=== PATIENT | female | born 1970 | race Caucasian/White ===

== ENCOUNTER 2018-05-30 10:43 | Emergency (ER) | payer OTHER ==
[~2018-05-30] VITALS: Ht 165.1 cm; Wt 95.3 kg
[~2018-05-30 10:43] MED LIST: ACETAMINOPHEN325 M1 PO; ADULT LOW DOSE81 MG PO; ALLEGRA ALLERG180 MG PO; AMOXICILLIN875 MG PO; ANAPROX DS550 MG PO; APHEN325 MG PO; AZITHROMYCIN 2250 MG PO; CALCIUM 600 +1 EAC5 PO; CARISOPRODOL 3350 MG PO; CIPROFLOXACIN500 M1 PO; COLACE 100 MG100 MG PO; CRESTOR10 MG PO; EFFIENT10 MG PO; HYDROCHLOROTH12.5 MG PO; IBUPROFEN 800800 MG PO; IRON325 PO; LASIX 40 MG TAB40 M1 PO; LEVOTHROID88 MCG; LISINOPRIL2.5 MG PO; LOPRESSOR 12.12.5 MG PO; MEDROLDOSEPACK PO; MULTIVITAMINS PO; NAPROSYN500 MG PO; NEURONTIN 300M300 M2 PO; NITROGLYCERIN0.4 MG SL; ODORLESS GARLI500 MG; PERCOCET 5-3251 EACH PO; PREDNISONE 20 M20 M1 PO; PRILOSEC40 MG PO; PROAIR HFA8.5 GM IH; PROMETHAZINE-D120 ML PO; PROTONIX40 M2 PO; ROBAXIN500 MG PO; SYNTHROID75 MCG PO; TAMSULOSIN HCL0.4 M1 PER TUBE; TESSALON200 MG PO; TRAMADOL 50 MG50 MG PO; TRIBENZOR 40-51 EACH PO; ULTRAM 50MG TAB50 MG PO; VITAMIN C 250250 MG; VITAMIN D1000 UNI1 PO; ZPAK PO; [UNRECOGNIZED DRUG - OTHER] PO
[2018-05-30] MEDS ORDERED: ASPIR 8181 MG PO (11:03)
[2018-05-30] MEDS ORDERED: MOBIC15 MG PO (12:24)
[2018-05-30] MEDS ORDERED: MEDROLDOSEPACK PO (12:24)
[2018-05-30 12:39] VITALS: BP 128/98
== END 2018-05-30 12:40 | disposition home or self-care (01) ==
LOC: M.ERS 10:43
DX: M13.862 Other specified arthritis, left knee (principal); R22.42 Localized swelling, mass and lump, left lower limb; I10 Essential (primary) hypertension; Z88.6 Allergy status to analgesic agent; Z88.5 Allergy status to narcotic agent; Z88.2 Allergy status to sulfonamides; E03.9 Hypothyroidism, unspecified; Z90.49 Acquired absence of other specified parts of digestive tract; Z86.73 Personal history of transient ischemic attack (TIA), and cerebral infarction without residual deficits; Z98.890 Other specified postprocedural states; Z86.2 Personal history of diseases of the blood and blood-forming organs and certain disorders involving the immune mechanism

== ENCOUNTER 2018-06-02 15:51 | Emergency (ER) | payer OTHER ==
[~2018-06-02] VITALS: Ht 165.1 cm; Wt 95.3 kg
[~2018-06-02 15:51] MED LIST changes: +ASPIR 8181 MG PO; +MOBIC15 MG PO
[2018-06-02 16:57] LABS: ABSOLUTE BASOPHILS 0.1 thou/uL (0.0-0.2); ABSOLUTE LYMPHOCYTES 2.3 thou/uL (0.8-5.3); ABSOLUTE MONOCYTES 0.6 thou/uL (0.0-1.2); ABSOLUTE NEUTROPHILS 7.7 thou/uL (1.6-8.1); EOSINOPHILS 0.1 %; HEMATOCRIT 40.6 % (37.0-47.0); HEMOGLOBIN 13.6 gm/dL (12.0-15.0); LYMPHOCYTES 21.6 %; MCH 29.6 pg (26.0-34.0); MCHC 33.6 g/dL (28.0-37.0); MCV 88.1 fL (80.0-100.0); MONOCYTES 5.6 %; MPV 8.1 fl. (7.2-11.1); NUCLEATED RBCS 0 /100WBC; PLATELET COUNT* 240 thou/uL (150-400); POLYS 71.7 %; RBC 4.61 mil/uL (4.20-5.00); RDW-CV 13.8 % (10.5-14.5); WBC 10.7 thou/uL (4.0-11.0)
[2018-06-02 17:06] LABS: ANION GAP 7 mmol/L (7-16); BUN 14 mg/dL (7-18); CALCIUM 8.5 mg/dL (8.5-10.1); CHLORIDE 103 mmol/L (98-107); CO2 28 mmol/L (21-32); CREATININE 1.2 mg/dL (0.6-1.3); GLUCOSE 114 mg/dL (70-99); POTASSIUM 3.4 mmol/L (3.5-5.1); SODIUM 138 mmol/L (136-145)
[2018-06-02 17:17] LABS: ALBUMIN 3.7 g/dL (3.4-5.0); ALKALINE PHOSPHATASE 93 U/L (46-116); NT-PRO BRAIN NAT PEPTIDE 316 pg/mL (<300); SGOT 13 U/L (15-37); SGPT 35 U/L (30-65); TOTAL BILIRUBIN 0.2 mg/dL (<0.1-1.0); TOTAL PROTEIN 7.5 g/dL (6.4-8.2); TROPONIN-I LEVEL <0.06 ng/mL (<0.06)
[2018-06-02] MEDS ORDERED: ZOCOR20 MG PO (18:05)
[2018-06-02] MEDS ORDERED: HYDROCHLOROTHIA25 M2 PO (18:05)
[2018-06-02] MEDS ORDERED: ARMOUR THYROID90 M1 PO (18:05)
[2018-06-02] MEDS ORDERED: PRINIVIL20 MG PO (18:05)
[2018-06-02] MEDS ORDERED: CYCLOBENZAPRINE5 MG PO (18:05)
[2018-06-02 18:19] VITALS: BP 180/98
--- NOTE | 2018-06-03 15:32 | EKG ---
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
== END 2018-06-02 18:20 | disposition home or self-care (01) ==
LOC: M.ERS 15:51
PROVIDERS: Physician Assistant
DX: M62.830 Muscle spasm of back (principal); I10 Essential (primary) hypertension; E87.6 Hypokalemia; E03.9 Hypothyroidism, unspecified; I25.2 Old myocardial infarction; Z90.49 Acquired absence of other specified parts of digestive tract; Z88.2 Allergy status to sulfonamides; Z88.5 Allergy status to narcotic agent; Z88.8 Allergy status to other drugs, medicaments and biological substances

== ENCOUNTER 2018-10-14 04:51 | Emergency (ER) | payer OTHER ==
[~2018-10-14] VITALS: Ht 165.1 cm; Wt 95.3 kg
[~2018-10-14 04:51] MED LIST changes: +ARMOUR THYROID90 M1 PO; +CYCLOBENZAPRINE5 MG PO; +HYDROCHLOROTHIA25 M2 PO; +PRINIVIL20 MG PO; +ZOCOR20 MG PO
[2018-10-14] MEDS ORDERED: ARMOUR THYROID120 M1 (05:02)
[2018-10-14] MEDS ORDERED: MAGIC MOUTHWASH SWISH&SPIT (05:29)
[2018-10-14] MEDS ORDERED: IBUPROFEN 800800 MG PO (05:29)
[2018-10-14] MEDS ORDERED: AMOXICILLIN875 MG PO (05:29)
[2018-10-14 05:38] VITALS: BP 114/69
== END 2018-10-14 05:34 | disposition home or self-care (01) ==
LOC: M.ERS 04:51
DX: J02.0 Streptococcal pharyngitis (principal); E03.9 Hypothyroidism, unspecified; I10 Essential (primary) hypertension; Z86.73 Personal history of transient ischemic attack (TIA), and cerebral infarction without residual deficits; Z90.49 Acquired absence of other specified parts of digestive tract; Z98.890 Other specified postprocedural states; Z86.2 Personal history of diseases of the blood and blood-forming organs and certain disorders involving the immune mechanism; Z88.6 Allergy status to analgesic agent; Z88.2 Allergy status to sulfonamides; Z88.5 Allergy status to narcotic agent

== ENCOUNTER 2018-10-27 16:06 | Observation (INO) | payer OTHER ==
[~2018-10-27] VITALS: Ht 157.5 cm; Wt 101.2 kg
[~2018-10-27 16:06] MED LIST changes: +ARMOUR THYROID120 M1 PO; +MAGIC MOUTHWASH SWISH&SPIT
[2018-10-27 16:11] VITALS: BP 133/77
[2018-10-27 16:41] LABS: ABSOLUTE EOSINOPHILS 0.1 thou/uL (0.0-0.7); ABSOLUTE LYMPHOCYTES 2.8 thou/uL (0.8-5.3); ABSOLUTE MONOCYTES 0.3 thou/uL (0.0-1.2); ABSOLUTE NEUTROPHILS 3.2 thou/uL (1.6-8.1); BASOPHILS 0.4 %; EOSINOPHILS 1.2 %; HEMATOCRIT 38.2 % (37.0-47.0); HEMOGLOBIN 12.9 gm/dL (12.0-15.0); MCH 29.4 pg (26.0-34.0); MCHC 33.9 g/dL (28.0-37.0); MONOCYTES 5.3 %; MPV 8.4 fl. (7.2-11.1); NUCLEATED RBCS 0 /100WBC; PLATELET COUNT* 235 thou/uL (150-400); POLYS 49.1 %; RDW-CV 14.1 % (10.5-14.5); WBC 6.5 thou/uL (4.0-11.0)
[2018-10-27 16:54] LABS: ANION GAP 12 mmol/L (7-16); BUN 20 mg/dL (7-18); CALCIUM 9.3 mg/dL (8.5-10.1); CHLORIDE 101 mmol/L (98-107); CO2 28 mmol/L (21-32); CREATININE 1.1 mg/dL (0.6-1.3); GLUCOSE 130 mg/dL (70-99); POTASSIUM 3.5 mmol/L (3.5-5.1); SODIUM 141 mmol/L (136-145)
[2018-10-27 16:58] LABS: APTT 25.9 Seconds (25.0-31.3); INR 0.9; PROTIME 9.6 Seconds (9.20-11.50)
[2018-10-27 17:06] LABS: ALKALINE PHOSPHATASE 90 U/L (46-116); LIPASE 161 U/L (73-393); NT-PRO BRAIN NAT PEPTIDE 132 pg/mL (<300); SGOT 22 U/L (15-37); SGPT 47 U/L (30-65); TOTAL BILIRUBIN 0.2 mg/dL (<0.1-1.0); TOTAL PROTEIN 7.5 g/dL (6.4-8.2); TROPONIN-I LEVEL <0.06 ng/mL (<0.06)
[2018-10-27 22:10] VITALS: BP 114/59
[2018-10-27] MEDS ORDERED: HYDROCHLOROTHIA50 MG PO (22:50)
[2018-10-27 23:00] VITALS: BP 124/66
[2018-10-28 04:00] VITALS: BP 91/41
[2018-10-28 04:25] LABS: HEMATOCRIT 35.1 % (37.0-47.0); HEMOGLOBIN 11.6 gm/dL (12.0-15.0); MCH 29.3 pg (26.0-34.0); MCHC 33.1 g/dL (28.0-37.0); MCV 88.5 fL (80.0-100.0); MPV 8.4 fl. (7.2-11.1); RBC 3.96 mil/uL (4.20-5.00); RDW-CV 13.9 % (10.5-14.5); WBC 5.5 thou/uL (4.0-11.0)
[2018-10-28 04:39] LABS: ANION GAP 6 mmol/L (7-16); BUN 18 mg/dL (7-18); CALCIUM 8.9 mg/dL (8.5-10.1); CHLORIDE 107 mmol/L (98-107); CHOLESTEROL 132 mg/dL (<200); CO2 30 mmol/L (21-32); CREATININE 1.1 mg/dL (0.6-1.3); GLUCOSE 99 mg/dL (70-99); HDL CHOLESTEROL 33 mg/dL (>40); LDL CHOLESTEROL 71 mg/dL (<100); MAGNESIUM 1.9 mg/dL (1.8-2.4); POTASSIUM 3.6 mmol/L (3.5-5.1); SODIUM 143 mmol/L (136-145); TRIGLYCERIDE 144 mg/dL (<150); VLDL 29 mg/dL (<40)
[2018-10-28 04:41] LABS: SERUM ASSESSMENT CLEAR
--- NOTE | 2018-10-28 05:14 | NUR ---
RECEIVED REPORT FROM ED RN. PT TRANSFERRED TO 218. PT A&OX4. VSS. LANDMAN IN PLACE. ADMISSION HISTORY & PHYSICAL ASSESSMENT COMPLETED AND CHARTED. PT ON RA. PT TRACING SR ON TELE. PT COMPLAINED OF INTERMITTENT CHEST PAIN. EKG SHOWS SR. INSTRUCTED ON NPO POST MIDNIGHT FOR CARDIO CONSULT. COMMUNICATES UNDERSTANDING. ORIENTED TO ROOM AND CALL LIGHT. PT RESTED WELL ON BED. CALL LIGHT WITHIN REACH.
[2018-10-28 08:00] VITALS: BP 109/72
[2018-10-28] MEDS ORDERED: NITROGLYCERIN0.4 MG SUBLING (08:59)
--- NOTE | 2018-10-28 10:20 | NUR ---
Pt is A&O. Resides at home with her parents and kids. Active and independent. No DME. No hx of HH or SNF. Goal is home at dc. Cardiology following. No needs anticipated.
[2018-10-28 11:30] VITALS: BP 108/72
--- NOTE | 2018-10-28 14:08 | EXE ---
[place] [address] STRESS ECHOCARDIOGRAM Name: DANELLE VIVAS Room: [address]#: [id number] Admission: 10/27/18 Attend Phys: Surendra Spring, Discharge: Date of : 70 Date of Service: 10/28/18 1407 Report #: [id number] THIS REPORT FOR: //name// APPROVED REPORT Study performed: 10/28/2018 12:40:48 Exam: Stress Echocardiogram Indication: Chest pain , Dyspnea , Dizziness Patient Location: In-Patient Stress Nurse: Margarita Eaton RN Room #: [facility] Supervising Physician: Hernan Emmanuel MD Ht: 5 ft 5 in HR: 69 bpm BP: 122/57 mmHg Medical History Medical History: [place], PCI Cardiac Risk Factors: HTN, Hyperlipidemia, FHX of CAD Procedure The patient underwent an Exercise Stress Test using the Ciro Protocol. Blood pressure, heart rate, and EKG were monitored. An Echocardiogram was performed by geochemical laboratory technician in four stages in quad fashion. At peak stress, four selected images were obtained and placed side by side with resting images for comparison. Stress Test Details Stress Test: Exercise stress testing was performed using a Ciro protocol. HR Resting HR: 69 bpm Max Heart Rate (APMHR): 172 bpm Max HR Achieved: 159 bpm Target HR (85% APMHR): 146 bpm % of APMHR: 92 Recovery HR: 89 bpm HR response to stress: Normal HR response to stress BP Resting BP: 122/57 mmHg Max BP: 167/64 mmHg Recovery BP: 127/66 mmHg BP response to stress: Normal blood pressure response [place] [address] STRESS ECHOCARDIOGRAM Name: DANELLE VIVAS Room: [address]#: [id number] Admission: 10/27/18 Attend Phys: Surendra Spring, Discharge: Date of : 70 Date of Service: 10/28/18 1407 Report #: [id number] Resting ECG: Sinus Rhythm Stress ECG: Sinus Tachycardia ST Change: Normal Maximum ST Deviation: 0 mm Arrhythmia: VPC's Recovery ECG: Sinus Rhythm Recovery ST Change: Normal Recovery ST Deviation: 0 mm Recovery Arrhythmia: VPC Clinical Reason for Termination: Completed protocol Exercise duration: 7 min 33 sec Highest Stage Achieved: Stage 4: 4.2 mph at 16% grade. Exercise capacity: 9.42 METs Pre-Stress Echo The resting Echocardiogram showed normal left ventricular contractility with an estimated Ejection Fraction of about 60-65%. Post-Stress Echo The stress Echocardiogram showed normal left ventricular contractility with an estimated Ejection Fraction of about 65-70%. Conclusion Clinical Response: Non-ischemic Exercise Capacity: Average Stress ECG Response: Non-ischemic Stress Echo Images: Non-ischemic low risk stress echo for future cardiac events Other Information Study Quality: Good <Conclusion> low risk stress echo for future cardiac events <ELECTRONICALLY SIGNED> By: Hernan Emmanuel MD, [facility] 10/28/18 140 06 06 Hernan Emmanuel MD, FAC /INF
--- NOTE | 2018-10-28 14:35 | EKG ---
[place] [address] ELECTROCARDIOGRAM REPORT Name: DANELLE VIVAS Room: [address] M.R.#: [id number] Admission: 10/27/18 Attend Phys: Surendra Spring MD Discharge: Date of : 70 Report #: [id number] THIS REPORT FOR: //name// 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1970 Requested By: Surendra Spring Order Number: [id number] Felicia MD: Hernan Emmanuel Measurements Intervals [place] Rate: 77 P: 10 NC: 147 QRS: 31 QRSD: 89 T: 40 QT: 369 QTc: 418 Interpretive Statements Sinus rhythm Ventricular premature complex Low voltage, precordial leads Compared to ECG 06/02/2018 16:49:36 Ventricular premature complex(es) now present Electronically Signed On 10-28-2018 14:35:23 CDT by Hernan Emmanuel [email or web address] <ELECTRONICALLY SIGNED> By: Hernan Emmanuel MD, [facility] 10/28/18 7238 1609 1609 Hernan Emmanuel MD, [facility] /EPI
[2018-10-28 15:27] VITALS: BP 108/72
--- NOTE | 2018-10-28 15:56 | NUR ---
ASSUMED PT CARE. PT IS AOX4. 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 ON RA. NO CHEST PAIN. ECHO STRESS DONE. RESULT NORMAL. DISCHARGE ORDERED. DC INSTRUCTION GIVEN TO PT WHO STATES UNDERSTANDING. PT LEFT FLOOR AT 1557 ACCOMPANIED BY NURSE AND FAMILY.
--- NOTE | 2018-10-28 16:49 | EKG ---
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 Programmer: STEPHANIE : 1970 Requested By: Lashon Quinn Order Number: [id number] MD: Hernan Emmanuel Measurements Intervals [place] Rate: 67 P: -1 FL: 161 QRS: 30 QRSD: 91 T: 46 QT: 406 QTc: 429 Interpretive Statements Sinus rhythm Low voltage, precordial leads Abnormal R-wave progression, early transition Electronically Signed On 10-28-2018 16:49:37 CDT by Hernan Emmanuel [email or web address] <ELECTRONICALLY SIGNED> By: Hernan Emmanuel MD, [facility] 10/28/18 1649 232 232 Hernan Emmanuel MD, [facility] /EPI
--- NOTE | 2018-10-28 17:43 | CON ---
[address] [address] CONSULTATION Name: DANELLE VIVAS Room: [address] Lala Marc#: [id number] Admission: 10/27/18 Attend Phys: Surendra Spring MD Discharge: 10/28/18 Date of : 70 Report #: [id number] THIS REPORT FOR: //name// CC: MARY JO physician/PCP Surendra Spring DATE OF SERVICE: 10/28/2018 CARDIOLOGY CONSULTATION HISTORY OF PRESENT ILLNESS: The patient is a 48-year-old single white female who I was asked to see in the hospital today after she complained of chest pain. The patient states that she was admitted here to [place] 6 years ago with chest pain. She was seen by Dr. Wick. 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 She has done well since that time. She apparently had a stress test years ago. She stays fairly active, caring for grandchildren. She was doing well until she worked yesterday. At the end of her shift, she felt lightheaded, somewhat nauseated, and her heart rate was increased. She left work early and went to bed last night, feeling lightheaded. She then woke up yesterday morning and felt a pain in her chest. It was not related to coughing or meals. She had some discomfort of her left arm and shoulder. She finally came to the hospital yesterday and was admitted. She denied any rash on her chest. She has had no blood in her stool. PAST MEDICAL/SURGICAL HISTORY: She has had previous cholecystectomy, tubal ligation, appendectomy, and uterine ablation. She has a history of hypertension and hyperlipidemia. MEDICATIONS: Consists of [place] Thyroid, simvastatin, hydrochlorothiazide, and lisinopril. ALLERGIES: SHE HAS PREVIOUS INTOLERANCE TO CODEINE, SULFA, AND OXYCODONE. FAMILY HISTORY: Mother with hypertension. SOCIAL HISTORY: She is , lives with her mother and father in [place], [place]. She works at [employer]. No smoking, alcohol abuse, or illicit drug use. REVIEW OF SYSTEMS: Apparently 20 years ago, she had an episode where she could not focus, told she had a TIA. She was admitted to the hospital at [facility]. She has no history of asthma, peptic ulcer disease, liver disease, kidney disease, or cancer. She saw a psychiatrist in the past. [place] [address] CONSULTATION Name: DANELLE VIVAS [address] [id number] Admission: 10/27/18 Attend Phys: Surendra Spring MD Discharge: 10/28/18 Date of : 70 Report #: [id number] PHYSICAL EXAMINATION: GENERAL: Revealed a middle-aged female, lying in bed. She appeared in no distress. VITAL SIGNS: She had a blood pressure of 120/70, pulse 60, and she is afebrile. HEENT: She is anicteric. Conjunctivae are pink. Mucous membranes are moist. NECK: Veins do not appear distended. No carotid bruits. Neck is supple. CHEST: Clear to auscultation. CARDIAC: Regular rate and rhythm. ABDOMEN: Soft. EXTREMITIES: Had no edema. Dorsalis pedis pulse 2+ bilaterally. SKIN: Warm and dry. NEUROLOGIC: Nonfocal. LYMPH: No adenopathy. MUSCULOSKELETAL: No joint effusion. RADIOLOGY DATA: Her ECG done last night showed a sinus rhythm. There was no significant ST or T-wave change. LABORATORY DATA: Sodium 143, potassium 3.6, creatinine 1.1, and glucose 99. Liver function studies were normal. Troponin 0.06. Cholesterol 132, triglycerides 144, HDL 33, and LDL 71. Previous TSH in 2013 was 2.3. White blood cell count 5.5 and hemoglobin 11.6. IMPRESSION RECOMMENDATIONS: 1. Chest pain. Previous stent. Recommend stress echocardiogram. 2. Previous coronary artery stent. I would continue on ____. 3. Hyperlipidemia. The patient is on a statin drug. 4. Hypertension. The patient is on a diuretic and KEITH inhibitor. <ELECTRONICALLY SIGNED> By: Hernan Emmanuel MD, FACC 10/28/18 1743 0927 1000Davigladys Emmanuel MD, FACC /nt
== END 2018-10-28 16:29 | disposition home or self-care (01) ==
LOC: M.ERS 16:06 → M.2W 17:13 → M.TBA-ER 17:13 → M.2W 17:13
PROVIDERS: Personal Emergency Response Attendant; ADMIT Internal Medicine
DX: I25.10 Atherosclerotic heart disease of native coronary artery without angina pectoris (principal); R07.89 Other chest pain; E78.5 Hyperlipidemia, unspecified; R42 Dizziness and giddiness; I25.2 Old myocardial infarction; D64.9 Anemia, unspecified; E03.9 Hypothyroidism, unspecified; I12.9 Hypertensive chronic kidney disease with stage 1 through stage 4 chronic kidney disease, or unspecified chronic kidney disease; E11.22 Type 2 diabetes mellitus with diabetic chronic kidney disease; N18.2 Chronic kidney disease, stage 2 (mild); Z90.49 Acquired absence of other specified parts of digestive tract; Z90.89 Acquired absence of other organs; Z98.51 Tubal ligation status; Z88.0 Allergy status to penicillin; Z88.5 Allergy status to narcotic agent; Z95.1 Presence of aortocoronary bypass graft; Z88.8 Allergy status to other drugs, medicaments and biological substances; Z86.73 Personal history of transient ischemic attack (TIA), and cerebral infarction without residual deficits; Z79.899 Other long term (current) drug therapy; Z79.82 Long term (current) use of aspirin

== ENCOUNTER 2019-09-09 10:24 | Emergency (ER) | payer OTHER ==
[~2019-09-09] VITALS: Ht 165.1 cm; Wt 96.6 kg
[~2019-09-09 10:24] MED LIST changes: +HYDROCHLOROTHIA50 MG PO; +NITROGLYCERIN0.4 MG SUBLING
[2019-09-09 10:34] VITALS: BP 150/84
[2019-09-09] MEDS ORDERED: APAP650 PO (10:44)
[2019-09-09] MEDS ORDERED: HYDROXYZINE HCL25 M2 PO (10:44)
[2019-09-09] MEDS ORDERED: MIRALAX17 G1 PO (10:45)
[2019-09-09] MEDS ORDERED: CYCLOBENZAPRINE10 MG PO (10:49)
[2019-09-09 11:12] LABS: ABSOLUTE EOSINOPHILS 0.1 thou/uL (0.0-0.7); ABSOLUTE LYMPHOCYTES 2.3 thou/uL (0.8-5.3); ABSOLUTE MONOCYTES 0.4 thou/uL (0.0-1.2); ABSOLUTE NEUTROPHILS 2.2 thou/uL (1.6-8.1); BASOPHILS 0.7 %; EOSINOPHILS 2.2 %; HEMATOCRIT 38.7 % (37.0-47.0); HEMOGLOBIN 13.3 gm/dL (12.0-15.0); LYMPHOCYTES 45.5 %; MCH 28.7 pg (26.0-34.0); MCHC 34.2 g/dL (28.0-37.0); MCV 83.9 fL (80.0-100.0); MONOCYTES 7.5 %; MPV 7.5 fl. (7.2-11.1); NUCLEATED RBCS 0 /100WBC; PLATELET COUNT* 264 thou/uL (150-400); POLYS 44.1 %; RBC 4.61 mil/uL (4.20-5.00); RDW-CV 14.7 % (10.5-14.5); WBC 5.1 thou/uL (4.0-11.0)
[2019-09-09 11:25] LABS: CALCIUM 8.8 mg/dL (8.5-10.1); CREATININE 1.2 mg/dL (0.6-1.3); POTASSIUM 3.8 mmol/L (3.5-5.1)
[2019-09-09 11:28] LABS: APTT 26.3 Seconds (25.0-31.3); INR 0.9; PROTIME 9.7 Seconds (9.20-11.50)
[2019-09-09 11:36] LABS: ALBUMIN 3.7 g/dL (3.4-5.0); TOTAL BILIRUBIN 0.3 mg/dL (<0.1-1.0); TOTAL PROTEIN 7.4 g/dL (6.4-8.2)
[2019-09-09 13:18] VITALS: BP 145/89
--- NOTE | 2019-09-09 16:05 | EKG ---
[place] [address] ELECTROCARDIOGRAM REPORT Name: DANELLE VIVAS Room: [address]#: [id number] Admission: 09/09/19 Attend Phys: Malvin Dietz, Discharge: 09/09/19 Date of : 70 Date of Service: 09/09/19 1029 Report #: [id number] THIS REPORT FOR: //name// [facility] ED Test Date: 2019-09-09 Test Time: 10:29:54 Pat Name: DANELLE VIVAS Department: Room: [facility] Gender: F Anesthesiologist And Critical Care: MELINA : 1970 Requested By: Nieves Mckinnon Order Number: [id number] MD: Rom Baig Measurements Intervals [place] Rate: 76 P: 0 MA: 140 QRS: 26 QRSD: 84 T: 58 QT: 378 QTc: 426 Interpretive Statements Sinus rhythm Low voltage, extremity and precordial leads Compared to ECG 10/27/2018 23:22:58 No significant changes Electronically Signed On 09-09-2019 16:04:10 CDT by Rom Baig [email or web address] <ELECTRONICALLY SIGNED> By: Rom Baig MD, [facility] 09/09/19 1604 1029 1029 Rom Baig MD, [facility] /EPI
== END 2019-09-09 13:20 | disposition left against medical advice (07) ==
LOC: M.ERS 10:24 → M.TBA-ER 12:13 → M.ERS 12:13 → M.TBA-ER 13:20
PROVIDERS: Nurse Practitioner Family
DX: R07.89 Other chest pain (principal); R06.00 Dyspnea, unspecified; M79.602 Pain in left arm; M54.5 Low back pain; M54.6 Pain in thoracic spine; I10 Essential (primary) hypertension; M79.7 Fibromyalgia; Z88.6 Allergy status to analgesic agent; Z88.5 Allergy status to narcotic agent; Z88.2 Allergy status to sulfonamides; E03.9 Hypothyroidism, unspecified; Z86.73 Personal history of transient ischemic attack (TIA), and cerebral infarction without residual deficits; Z90.49 Acquired absence of other specified parts of digestive tract; Z98.51 Tubal ligation status; Z86.2 Personal history of diseases of the blood and blood-forming organs and certain disorders involving the immune mechanism; Z95.5 Presence of coronary angioplasty implant and graft